=== PATIENT | female | born 1970 | race Caucasian/White ===

== ENCOUNTER 2024-06-23 15:04 | Emergency (ER) | payer MEDICARE, MEDICAID ==
[~2024-06-23] VITALS: Ht 177.8 cm; Wt 129.0 kg
[2024-06-23 15:43] LABS: BASOPHILS # (AUTO) 0.1 X10'3 (0-0.2); BASOPHILS % (AUTO) 0.9 % (0-1); EOSINOPHILS # (AUTO) 0.3 X10'3 (0-0.9); EOSINOPHILS % (AUTO) 3.2 % (0-6); HEMOGLOBIN 13.3 g/dl (12.0-16.0); LYMPHOCYTES % (AUTO) 37.4 % (21-51); MEAN CORPUSCULAR HEMOGLOBIN 29.4 PG (27.0-31.0); MEAN CORPUSCULAR HGB CONC 32.5 g/dL (33.0-36.5); MEAN CORPUSCULAR VOLUME 90.3 FL (78-98); MEAN PLATELET VOLUME 8.6 FL (7.4-10.4); MONOCYTES # (AUTO) 0.7 X10'3 (0-0.9); MONOCYTES % (AUTO) 8.9 % (2-12); NEUTROPHILS # (AUTO) 4.1 X10'3 (1.8-7.7); NEUTROPHILS % (AUTO) 49.6 % (42-75); PLATELET COUNT 230 X10'3 (140-440); RED BLOOD COUNT 4.54 X10'6 (4.20-5.60); RED CELL DISTRIBUTION WIDTH 13.6 % (11.5-14.5); WHITE BLOOD COUNT 8.2 X10'3 (4.5-11.0)
[2024-06-23 16:05] LABS: ALANINE AMINOTRANSFERASE 35 U/L (12-78); ALBUMIN 3.7 G/DL (3.4-5.0); ALKALINE PHOSPHATASE 38 IU/L (46-116); ANION GAP 7 (8-16); ASPARTATE AMINO TRANSFERASE 24 U/L (10-37); BILIRUBIN,TOTAL 0.4 MG/DL (0.1-1.0); BLOOD UREA NITROGEN 12 MG/DL (7-18); CALCIUM 9.1 MG/DL (8.5-10.1); CHLORIDE 105 MMOL/L (99-107); CREATININE 0.92 MG/DL (0.40-0.90); GLUCOSE 93 MG/DL (70-104); POTASSIUM 4.4 MMOL/L (3.5-5.1); SODIUM 142 MMOL/L (135-145); TOTAL CARBON DIOXIDE 30.5 MMOL/L (24-32); TOTAL PROTEIN 7.3 G/DL (6.4-8.2); eCRCL 77 ML/MIN; eGFR 64 ML/MIN
[2024-06-23 16:06] LABS: PRO BRAIN NATRIURETIC PEPTIDE 162 PG/ML (0-125)
[2024-06-23 16:08] VITALS: TEMP 98.2
[2024-06-23] MEDS ORDERED: MECL-226 PO (18:04)
[2024-06-23] MEDS: meclizine 12.5mg tablet PO ONE (18:14)
[2024-06-23 18:53] VITALS: BP 136/85; PULSE 67; RESP 16; O2SAT 100
== END 2024-06-23 18:51 | disposition home or self-care (01) ==
LOC: ER 15:05
DX: R42 Dizziness and giddiness (principal); R55 Syncope and collapse; E78.00 Pure hypercholesterolemia, unspecified; I10 Essential (primary) hypertension; F12.90 Cannabis use, unspecified, uncomplicated; Z88.8 Allergy status to other drugs, medicaments and biological substances; Z79.899 Other long term (current) drug therapy; Z90.49 Acquired absence of other specified parts of digestive tract
CPT/HCPCS: 36415; 71045; 80053; 83880; 84484; 85025; 93005; 99285; J8597

== ENCOUNTER 2025-04-29 16:07 | Emergency (ER) | payer MEDICARE, MEDICAID ==
[~2025-04-29] VITALS: Ht 177.8 cm; Wt 127.3 kg
[~2025-04-29 16:07] MED LIST: MECL-226 PO
--- NOTE | 2025-04-29 16:30 | Physician Documentation ---
History of Present Illness ~ Chief Complaint: Mechanical Fall Stated Complaint: HEAD STRIKE Time Seen by MD: 18:28 Primary Medical Doctor: [facility] HPI A 54-year-old female who presents with right-sided head and neck pain after a mechanical trip and fall striking the right side of her head. Patient reports possible brief loss of consciousness though reports no blood thinner use. Patient reports nausea without vomiting. Patient reports history of chronic neck problems including slipped disc in neck. Tetanus within 5 Years?: Yes Medication Reconciliation Allergies: Coded Allergies: acetaminophen (Unverified Allergy, Severe, THROAT SWELLING, 04/29/25) sulfamethoxazole (Unverified Allergy, Severe, THROAT SWELLING, 04/29/25) trimethoprim (Unverified Allergy, Severe, THROAT SWELLING, 04/29/25) Scheduled Ibuprofen (Ibuprofen), 1 TAB PO Q8H Meclizine HCl (Meclizine HCl), 1 TAB PO Q8H Scheduled PRN ONDANSETRON ODT 4mg tablet (Ondansetron Odt), 1 TAB PO Q6H PRN PRN for nausea/vomiting Past Medical History Past Medical History: High Cholesterol, Hypertension, *PSYCH* Past Surgical History: appendectomy, cholecystectomy Alcohol Use: None Drug Use: marijuana Review of Systems ROS Right-sided head and neck pain as stated above in the HPI, otherwise all systems are reviewed and negative. Physical Exam Vital Signs: Temperature: 98.5, Source: Temporal, Heart Rate: 75, Respiratory Rate: 18, BP: 136/90, Pulse Oximetry: 99, Weight: 127.270 Oxygen Flow Rate: 0 Physical Exam VITALS: Reviewed and as above. GENERAL: Alert, nontoxic appearing, no apparent distress. HEENT: No central spinal tenderness, PERRLA, EOMI, no scalp hematoma, no scalp laceration, no hemotympanum, no stahl sign, no raccoon eyes RESPIRATORY: No increased work of breathing, no respiratory distress, speaking in full clear sentences MUSCULOSKELETAL: Moving all limbs through range of motion without difficulty Progress Results/Orders Results/Orders Orders - RAUL HERNANDEZ [facility] (04/29/25 16:41) Completed Orders - RAUL HERNANDEZ [facility] (04/29/25 16:41) Ketorolac Trometh 15mg/Ml Vial (Toradol (04/29/25 18:50) Vital Signs 04/29/25 04/29/25 16:17 19:14 Temp 98.5 98.6 Pulse 75 72 Resp 18 18 B/P (MAP) 136/90 132/86 Pulse Ox 99 99 O2 Flow Rate 0 EKG/XRAY/CT/US/VASC/MRI Bone/Soft Tissue X-Ray (Spine) : Additional Comment CLINICAL INDICATION: Neck Pain Post Fall TECHNIQUE: 4 radiographic views of the cervical spine were obtained. Comparison: None FINDINGS/IMPRESSION: 7 [id number] cervical type vertebrae. Mild reversal of the cervical lordosis. The vertebral body heights relatively maintained. 3 mm retrolisthesis of C5 on C6.5 mm anterolisthesis of C2 on C3. No evidence of acute traumatic fractures. Possibly old fracture deformity of the tip of the C7 spinous process. Multilevel moderate degenerative changes of the cervical spine. The prevertebral soft tissues are unremarkable. Airways are patent. If symptoms persist, consider CT/ MRI for further evaluation. Electronically Signed by:POLLY FISHER DO Date & Time: 04/29/251658 Dictated by: POLLY FISHER DO Dictation date and time: 04/29/251658 I have reviewed and agree with the radiology report. I have reviewed and interpreted the imaging as: No vertebral fracture Medical Decision Making Findings MSE performed in triage and patient returned to ED lobby by nursing staff to await available ED room This 54-year-old female presented after a ground level mechanical trip and fall striking her right head, reported possible brief loss of consciousness though reassuringly no blood thinner use. Patient reported some right-sided neck pain therefore x-ray of C-spine was obtained, C-spine x-ray did not demonstrate acute fracture or traumatic misalignment though did demonstrate evidence of previously known chronic changes to C-spine. There were no injuries noted to patient's scalp and per [place] head CT rule a CT was not indicated. History and physical is consistent with concussion. Patient is otherwise well-appearing with remainder of physical exam benign and patient is hemodynamically stable and appropriate for outpatient follow up. Differential Dx:Considerations: Include: Closed head injury, Fracture(s), Intraabdominal injury, Spine injury, Abrasion(s), Contusion(s), Hematoma(s), Laceration(s) Departure Disposition: 01 HOME / SELF CARE / HOMELESS Impression: Primary Impression: Concussion Qualified Codes: S06.0X1A - Concussion with loss of consciousness of 30 minutes or less, initial encounter Additional Impression: Right shoulder pain Qualified Codes: M25.511 - Pain in right shoulder Condition: Improved Discharge Instructions: Concussion, Adult, [id number] Additional Instructions: I suspect based on your symptoms that you have sustained a concussion. Please see the attached home care instructions for concussion care, you may also Internet search [facility] concussion care guidelines. Please use the prescribed ibuprofen for pain starting tomorrow, do not take ibuprofen, naproxen, or aspirin for the next 12 hours as you received injection of Toradol which replaces these medications. Take ibuprofen with food to avoid stomach upset. You may use the prescribed Zofran as needed for nausea. Please follow up with your primary care provider in the next few days. Please return to the emergency department for any new or worsening concerning symptoms. Referrals: NO PRIMARY CARE PROVIDER (PCP) Prescriptions ONDANSETRON ODT 4mg tablet (ONDANSETRON ODT) 4 Mg Tab.rapdis 1 TAB PO Q6H PRN PRN for nausea/vomiting for 4 Days, #16 TAB 0 Refills Prov: RAUL HERNANDEZ 04/29/25 Ibuprofen (Ibuprofen) 800 Mg Tablet 1 TAB PO Q8H for pain for 10 Days, #30 TAB 0 Refills Prov: RAUL HRENANDEZ 04/29/25 Education Educated: Patient Educated regarding: diagnosis, treatment, prognosis, need for follow up Signature Scribe Signature: No scribe Attestation: The note accurately reflects work and decisions made by me.RIMA Alvarado 05/01/25 20:42 RAUL HERNANDEZ Apr 29, 2025 16:30
--- NOTE | 2025-04-29 17:01 | RADIOLOGY REPORT ---
CLINICAL INDICATION: Neck Pain Post Fall TECHNIQUE: 4 radiographic views of the cervical spine were obtained. Comparison: None FINDINGS/IMPRESSION: 7 [id number] cervical type vertebrae. Mild reversal of the cervical lordosis. The vertebral bod y heights relatively maintained. 3 mm retrolisthesis of C5 on C6.5 mm anterolisthesis of C2 on C3. No evidence of acute traumatic fractures. Possibly old fracture deformity of the tip of the C7 spinous process. Multilevel moderate degenerative changes of the cervical spine. The prevertebral soft tissues are un remarkable. Airways are patent. If symptoms persist, consider CT/ MRI for further evaluation.
[2025-04-29] MEDS ORDERED: IBUP-1986 PO (18:43)
[2025-04-29] MEDS ORDERED: ONDA-243 PO (18:43)
[2025-04-29] MEDS: ketorolac trometh 15mg/ml vial 15 MG/ML ML IM ONE (19:09)
[2025-04-29 19:14] VITALS: BP 132/86; PULSE 72; RESP 18; TEMP 98.6; O2SAT 99
== END 2025-04-29 19:16 | disposition home or self-care (01) ==
LOC: ER 16:08
DX: S06.0X1A Concussion with loss of consciousness of 30 minutes or less, initial encounter (principal); M25.511 Pain in right shoulder; E78.00 Pure hypercholesterolemia, unspecified; I10 Essential (primary) hypertension; F12.90 Cannabis use, unspecified, uncomplicated; Z88.2 Allergy status to sulfonamides; Z88.6 Allergy status to analgesic agent; Z90.49 Acquired absence of other specified parts of digestive tract; W01.0XXA Fall on same level from slipping, tripping and stumbling without subsequent striking against object, initial encounter; Y93.89 Activity, other specified; Y92.89 Other specified places as the place of occurrence of the external cause; Y99.8 Other external cause status
CPT/HCPCS: 72040; 96372; 99283; J1885